=== PATIENT | female | born 1955 | race Caucasian/White ===

== ENCOUNTER 2019-08-04 12:24 | Outpatient (CLI) | payer MEDICARE, BC ==
[~2019-08-04 12:24] MED LIST: NO HOME MEDS
== END 2019-08-04 23:59 | disposition home or self-care (01) ==
LOC: CARD DIAG 12:24
PROVIDERS: ATTEND Family Medicine
DX: I08.3 Combined rheumatic disorders of mitral, aortic and tricuspid valves (principal)
CPT/HCPCS: 93306